=== PATIENT | male | born 1955 | race Caucasian/White ===

== ENCOUNTER 2024-07-01 17:32 | Inpatient (IN) | payer MEDICARE, OTHER, SELFPAY ==
[2024-07-01 16:05] VITALS: BMI 23.7
[2024-07-01 16:09] VITALS: BP 140/74
[2024-07-01 16:17] VITALS: BP 140/74
--- NOTE | 2024-07-01 16:25 | ED.CVA ---
History of Present Illness
General
Chief Complaint: CVA/TIA Symptoms
Source: patient, records and physician
Exam Limitations: none
Time Seen by Provider: 07/01/24 16:10
Onset of Stroke Symptoms
Onset of symptoms known: No
Time pt last seen normal is known: No
History of Present Illness
History of Present Illness:
69-year-old male currently lives at [facility]. Was sent for a MRI this morning. Patient thought it was a CAT scan. Apparently the CAT scan showed a new lacunar infarct. He was then sent to our ER for care. Only medical complaint is ongoing
dizziness that is vague in nature and has been going on for an unknown period of time. His covering physician could not determine exactly when his symptoms started. The MRI was ordered as an outpatient. He has an old right CVA with left-sided
weakness that is unchanged. He denies any other acute neurologic symptoms.
Past History
Past History
ED Past Medical History: CAD, CVA (03/2021 with left-sided residual weakness), HTN, Hypercholesterolemia, NIDDM, Psychiatric (Depression schizophrenia) and Other (Renal insufficiency)
ED Past Surgical History: Cardiac (CABG)
Social History
Tobacco: Smoker
Alcohol: None
Drug: None
Living: retirement
Review of Systems
Review of Systems
All Other Systems: Not applicable
Constitutional: Denies fever or chills
Respiratory: Reports no symptoms
Cardiac: Reports no symptoms
ABD/GI: Reports no symptoms
Phy Exam
Physical Exam
Physical Exam:
GENERAL: Alert and oriented in no apparent distress
EYE: Orbits normal.
NECK: Supple, no significant adenopathy.
ENT: Pharynx without erythema
CARDIAC: Regular rate and rhythm without any obvious murmurs.
LUNGS: Clear breath sounds,normal
ABDOMEN: Soft, without focal tenderness or distention
NEUROLOGICAL: Alert and oriented , mild left facial droop. Left arm drift. Can hold the left leg up against gravity
SKIN: Warm and dry, no rash or lesion, no discoloration, skin intact.
MUSCULOSKELETAL: No edema,no deformity.Good color. Slight contracture to the left arm
PSYCH: Normal and appropriate interaction.
Course
Orders/Labs/Results
Orders:
Orders
07/01/24 16:10
Electrocardiogram (*1) Stat
Reason for Study: Other
Other Reason for Exam: neuro symptoms
Cardiac Monitoring- Treatment ONCE
IV Insert/Care/Rem.- Treatment PRN
07/01/24 16:25
Basic Metabolic Panel Urgent
Complete Blood Count/With Diff Urgent
07/01/24 16:48
PTT Urgent
Prothrombin Time Urgent
07/01/24 17:09
Admit/Transfer Patient As Directed
Co-Sign Provider:
Level of Care: Inpatient admission
Assign to:: Telemetry
Physician / Group: clarence
Diagnosis: CVA
Reason for Telemetry: CVA/TIA
Date to Stop Telemetry: 07/04/24
Time to Stop Telemetry: 11:00
Reason for Hospitalization: cva/tia
Expected length of stay greater than two midnights?: Yes
ELOS- Estimated Length of Stay in days: 3
I certify the patient meets the requirements for IP care: Yes
PRN Pain Medication Management As Directed
May give lesser potent ordered pain med per pt: Yes
preference::
Protocol:: Medication orders for pain may be administered in a
manner that supports deferring to patient preference
when the pt is:
- Requesting an ordered lesser potent pain medication.
Least to most potent pain medications are defined
as: acetaminophen < NSAID < tramadol < opioids
(morphine, oxycodone, hydromorphone).
- Requesting a lesser dose of the same medication IF
ORDERED.
- Requesting a less intrusive route of administration
if both routes are prescribed by the provider (PO <
IV).
07/01/24 17:12
Code Status As Directed
Resuscitation Status: Full Code
07/01/24 17:25
VerifyNow Aspirin Stat
Pt on daily regimen OR been given initial dose of aspirin?: Yes
VerifyNow PRU Stat
Is the patient on antiplatelet medication, post 7 days?: Yes
07/01/24 18:18
Acetaminophen [Tylenol/Feverall] 650 mg RECTAL Q4HPRN PRN
Acetaminophen [Tylenol] 650 mg PO Q4HPRN PRN
Acetaminophen [Tylenol] 650 mg PO Q4HPRN PRN
Atorvastatin [Lipitor] 80 mg PO QPM
Dextrose 50%-Water [Dextrose 50% Syringe] 12.5 grams IV [id number] PRN
Glucagon [GlucaGen] 1 mg IM PRN PRN
07/01/24 18:18
Case Management Consult ONCE
Case Management Consult: Discharge Planning
Comment: stroke/tia
DIETARY CONSULT Routine
Reason for Consult: stroke/TIA
NEUROLOGY CONSULT Urgent
Consulting Provider: Jorge A Mahmood
Was physician already notified: Yes
Financial Sales Consultant Urgent
Activity As Directed
Activity Level: As Tolerated
Bedside Glucose Monitoring As Directed
Frequency: AC&HS
Additional Instructions:: Change to q6h if pt on TPN, tube feeding or not eating
NIH Stroke Scale As Directed
Directions: Per protocol
Comment: every shift and with any change in condition or mental status
Neurological Checks As Directed
Frequency: q4h
Additional Instructions:: q4h x 24h upon admission to the floor, then qshift & with any change in condition
and mental status
Orthostatic Vital Signs As Directed
Orthostatic VS Frequency: BID
Patient Education As Directed
Type: Stroke education packet
Comment: provide to patient and family
Pneumatic Compression Sleeves As Directed
Type: Thigh high
Vital Signs As Directed
Frequency: Per unit guidelines
Ot Eval And Treat Routine
Pt Eval And Treat Routine
Activity Level: As Tolerated
Speech Therapy Eval & Treat Routine
DX Deep Vein Thrombosis Video Routine
07/01/24 20:00
Benztropine [Cogentin] 0.5 mg PO BID
Haloperidol [Haldol] 6 mg PO BID
Metoprolol [Lopressor] 25 mg PO BID
Pantoprazole [Protonix] 40 mg PO BID
Sodium Chloride 2 gram PO BID
levetiracetam [Keppra] 750 mg PO BID
07/01/24 22:00
Magnesium Oxide 500 mg PO TID
Melatonin 6 mg PO HS
Mirtazapine [Remeron] 30 mg PO HS
Sennosides [Senokot] 8.6 mg PO HS
07/02/24 Breakfast
1600 calorie (13 carb) Diabetic
At Your Request: Full Participation
Basic Metabolic Panel IN AM
Cardiovascular Evaluation IN AM
Complete Blood Count/No Diff IN AM
Glycohemoglobin (HgbA1c) IN AM
07/02/24 07:30
Insulin Aspart Corrective Low [Novolog Flexpen-Low Resistance] See Protocol SC AC
07/02/24 08:00
Amlodipine [Norvasc] 5 mg PO DAILY
Aspirin Chewable [Low Strength Aspirin] 81 mg PO DAILY
Cholecalciferol (Vitamin D3) [VITAMIN D3 (cholecalciferol)] 25 mcg PO DAILY
Clopidogrel Bisulfate [Plavix] 75 mg PO DAILY
Cyanocobalamin [Vitamin B-12] 1,000 mcg PO DAILY
Docusate Sodium [Colace] 100 mg PO DAILY
FOLic ACID [Folvite] 1 mg PO DAILY
Ferrous Sulfate [Feosol] 325 mg PO DAILY
Loratadine [Claritin] 10 mg PO DAILY
citalopram 30 mg PO DAILY
fluticasone propionate 2 spray NASAL DAILY
07/03/24 06:00
Complete Blood Count/No Diff IN AM
07/04/24 06:00
Complete Blood Count/No Diff IN AM
07/04/24 11:00
DC Protocol for Telemetry ONCE
07/05/24 06:00
Complete Blood Count/No Diff IN AM
07/06/24 06:00
Complete Blood Count/No Diff IN AM
Abnormal Lab Results
07/01/24
16:25
RBC 3.74 L 10^6/uL
(4.70-6.10)
Hgb 10.3 L g/dL
(13.0-18.0)
Hct 30.2 L %
(39.0-52.0)
RDW 14.8 H %
(11.5-14.5)
Absolute Neuts (auto) 7.0 H 10^3/uL
(1.4-6.5)
Absolute Monos (auto) 0.7 H 10^3/uL
(0.1-0.6)
Neutrophils % 76.0 H %
(42.2-75.2)
Lymphocytes % 13.7 L %
(20.5-51.1)
Sodium 131 L mmol/L
(135-145)
Chloride 93 L mmol/L
(98-107)
Glucose 102 H mg/dl
(70-99)
07/01/24 16:25
07/01/24 16:25
Vital Signs
Initial and Last Documented VS:
Initial Vital Signs
BP
140/74
07/01/24 16:09
Last Documented Vital Signs
Temp Pulse Resp BP Pulse Ox
98.4 F 77 22 158/84 96
07/01/24 18:24 07/01/24 18:24 07/01/24 18:24 07/01/24 18:24 07/01/24 18:24
MDM/Problems Addressed
Differential Diagnosis Includes:
Patient with no acute neurologic findings. Old mild left hemiplegia from a right CVA. Nonetheless the report from the primary physician is as a new acute lacunar infarct. We are trying to alanis down this MRI report. I tried calling the
radiologist with no success.
*Critical Care Note
Total Time (30-74mins, 75-104mins- exclusive of procedures): Not Applicable
Data Reviewed
Review of Other/Old Records Reveals: Labs and Records
Update Note
Update Note:
MRI done as an outpatient shows a new lacunar infarct. Refer for admission and further care
ED Attending Note
-
Portions of this chart may have been created with voice recognition software.� Occasional wrong word or��sound alike� substitutions may have occurred due to the inherent limitations of voice recognition software.
Discharge Plan
Departure
Patient Disposition: Admit
Date of Disposition: 07/01/24
Time of Disposition: 16:46
Presentation/result/management discussed w/ accepting MD/DO: Hospitalist
Discharge Problem:
New lacunar cerebrovascular infarct
Interventions
Interventions:
*Risk Screen - Suicide Last Done: 07/01/24 16:22
*General Assessment Last Done: 07/01/24 16:23
*Neglect/Abuse Screening Last Done: 07/01/24 16:22
*ED COVID-19 Vaccine History Last Done: 07/01/24 16:22
*Nursing Disposition Last Done: 07/01/24 18:26
ED- Pulmonary Assessment Last Done: 07/01/24 16:22
ED- Neurological Assessment Last Done: 07/01/24 16:18
ED- Cardiac Assessment Last Done: 07/01/24 16:21
ED Swallowing Screen Last Done: 07/01/24 16:22
Discharge Date and Time
Discharge Date/Time: 07/01/24 18:26
[2024-07-01 16:33] LABS: % Basophils 0.5 % (0-2); % Eosinophils 2.5 % (0-6); % Immature Granulocytes 0.2 % (0-0.5); % Lymphocytes 13.7 % (20.5-51.1); % Monocytes 7.1 % (1.7-9.3); Absolute Basophils 0.1 10^3/uL (0-0.2); Absolute Eosinophils 0.2 10^3/uL (0-0.7); Absolute Lymphocytes 1.3 10^3/uL (1.2-3.4); Absolute Monocytes 0.7 10^3/uL (0.1-0.6); Hematocrit 30.2 % (39.0-52.0); Hemoglobin 10.3 g/dL (13.0-18.0); Mean Corp Hgb Conc. 34.1 g/dL (33.0-37.0); Mean Corpuscular Hgb 27.5 pg (27.0-31.0); Mean Corpuscular Volume 80.7 fL (80.0-94.0); Mean Platelet Volume 8.9 fL (7.4-10.4); Nucleated Red Blood Cells % 0 % (-); Platelet Count 287 10^3/uL (130-400); Red Blood Cell Count 3.74 10^6/uL (4.70-6.10); Red Cell Dist. Width 14.8 % (11.5-14.5); White Blood Cell Count 9.2 10^3/uL (4.8-10.8)
--- NOTE | 2024-07-01 16:47 | HPS.HSE ---
Family Physician
-
Family Physician:
Chief Complaint
-
Lightheadedness
Blurry vision
History of Present Illness
69-year-old male with past medical history for hypertension, type 2 diabetes, hyperlipidemia, coronary artery disease, seizure, CVA with left-sided weakness currently lives at [facility] presented to us with lightheadedness, fogginess, intermittent
blurry vision for more than 2 weeks. Patient had an MRI done today which showed new lacunar infract. Patient denied any headache. Denied any falls. Patient denied any fever, chills, chest pain, short of breath. Patient denied any abdominal
pain, nausea, vomiting, diarrhea. Patient denied dysuria hematuria.
Admitting for further management
Medical History
Past Medical History
Past Medical History: Reports Other
Additional Past Medical History:
barrets esophagus
left hemiparesis with CVA
Coronary artery disease
Essential hypertension
Carotid artery disease
Type 2 diabetes
CVA
Schizophrenia
CKD
Bipolar
Seizure
Past Surgical History: Reports Other
Additional Past Surgical History:
Coronary artery bypass graft
Left hip surgery
Social History
Tobacco: Smoker (3 cigarettes daily )
Alcohol: None
Drug: None
Personal: Single
Living: Care Home
Family History
Family History: Not pertinent
Allergies / Home Medications
Allergies reflects when Allergies were last updated in [employer].
Home Medications with original date entered in [employer]
Allergy/Medication List:
Allergies
Allergy/AdvReac Type Severity Reaction Status Date / Time
Penicillins Allergy per Verified 07/01/24 16:18
cardiac H&P
Home Medications
amlodipine 5 mg tablet 5 mg PO DAILY Blood pressure 04/18/21
benztropine 0.5 mg tablet 0.5 mg PO BID Drug induced dyskinesia 04/18/21
bisacodyl 10 mg rectal suppository (OneLAX Bisacodyl) 10 mg AR DAILYPRN PRN If MOM ineffective 04/18/21
levetiracetam 750 mg tablet (Keppra) 750 mg PO BID Seizures 04/18/21
loratadine 10 mg tablet 10 mg PO DAILY Allergies 04/18/21
metformin 500 mg tablet 500 mg PO BID@0800,1700 Diabetes 04/18/21
metoprolol tartrate 25 mg tablet 25 mg PO BID Blood pressure 04/18/21
mirtazapine 15 mg tablet 30 mg PO HS Sleep 04/18/21
atorvastatin 80 mg tablet 80 mg PO QPM High cholesterol 11/07/21
clopidogrel 75 mg tablet 75 mg PO DAILY Blood clot prevention/tx 11/07/21
fluticasone propionate 50 mcg/actuation nasal spray,suspension 2 spray intranasal DAILY Allergies 11/07/21
magnesium hydroxide 400 mg/5 mL oral suspension 30 ml PO HSPRN PRN constipation, no BM in 3 days 11/07/21
sennosides 8.6 mg tablet (senna) 8.6 mg PO HS Constipation 11/07/21
acetaminophen 325 mg tablet 650 mg PO Q4HPRN PRN mild pain/AGUILAR/temp> 101F, mild pain 11/13/21
cyanocobalamin (vitamin B-12) 1,000 mcg tablet 1,000 mcg PO DAILY Supplement 11/13/21
folic acid 1 mg tablet 1 mg PO DAILY Supplement 11/13/21
magnesium oxide 500 mg PO TID Supplement 11/13/21
pantoprazole 40 mg tablet,delayed release 40 mg PO BID Gastrointestinal issue 11/13/21
aspirin 81 mg chewable tablet 81 mg PO DAILY 11/14/21
cholecalciferol (vitamin D3) 25 mcg (1,000 unit) tablet 25 mcg PO DAILY 07/01/24
citalopram 30 mg capsule 30 mg PO DAILY 07/01/24
dextromethorphan HBr 10 ml PO Q6HPRN PRN cough 07/01/24
docusate sodium 100 mg tablet 100 mg PO DAILY 07/01/24
ferrous sulfate 325 mg (65 mg iron) tablet 325 mg PO DAILY 07/01/24
haloperidol 1 mg tablet 6 mg PO BID 07/01/24
lorazepam 0.5 mg topical Q6HPRN PRN agitation 07/01/24
melatonin 3 mg tablet 6 mg PO HS 07/01/24
sodium chloride 1,000 mg soluble tablet 2,000 mg PO BID 07/01/24
sodium phosphates 19 gram-7 gram/118 mL enema (Fleet Enema) 118 ml AR DAILYPRN PRN if suppository is ineffective 07/01/24
Review of Systems
-
Constitutional: Reports No Symptoms
EENT: Reports No Symptoms
Respiratory: Reports No Symptoms
Cardiac: Reports No Symptoms
Abdomen/GI: Reports No Symptoms
: Reports No Symptoms
Musculoskeletal: Reports No Symptoms
Skin: Reports No Symptoms
Neurological: Reports Other (Dizziness, fogginess, blurry vision)
Endocrine: Reports No Symptoms
Hematologic/Lymphatic: Reports No Symptoms
Psych: Reports No Symptoms
Physical Exam
Vital Signs
Vital Signs
Temp Pulse Resp BP Pulse Ox
98.5 F 72 18 140/74 96
07/01/24 16:17 07/01/24 16:17 07/01/24 16:17 07/01/24 16:17 07/01/24 16:22
Physical Exam
General: Well Developed, Well Nourished and No Apparent Distress
HEENT: NormoCephalic, Moist mucous membranes and Atraumatic
Respiratory: Clear
Cardiac: S1/S2 and Regular Rhythm; No Murmur or Rub
GI: Soft, Non Tender, Non Distended and Normal Bowel Sounds; No Organomegaly
Rectal: Deferred by Provider
Musculoskeletal: No Clubbing, No Cyanosis and No Edema
Skin: No Rash
Neuro: Nonfocal/grossly intact and Other (Left-sided weakness)
Laboratory Results
-
07/01/24 16:25
Laboratory Results
PT Cancelled 07/01/24 16:25
INR Cancelled 07/01/24 16:25
APTT Cancelled 07/01/24 16:25
Data Reviewed
-
MRI: Report Reviewed by me
Impression/Plan
-
#new acute lacunar infract
# History of CVA with the right hemispheric infarct left upper extremities weakness
-outpatient MRI with acute nonhemorrhagic lacunar infract. nonspecific punctate foci of chronic microhemorrhage in the left parietal love and left cerebellum. nonspecific 13mm enhancing lesion in the right frontal calvarium
-On aspirin Plavix continued
-PT OT
-Obtain A1c and lipid profile
-obtain orthostatic
-Neurology consult
#anemia of chronic disease
-hgb stable at 10.3
-no active bleeding
-ctm
-Ferrous sulfate continued
#Hypertension
-bp stable
-Norvasc,metoprolol continued with hold parameters
#Diabetes mellitus type 2
-hold metformin
-sliding scale
-CHO diet
#nicotine use
-smoke 3 cigarettes daily
-denied nicotine patch
#HLD
cont Zocor
#CAD/CS
s/p carotid endarterectomy
Status post CABG x2
Continue aspirin, Zocor
#Seizure disorder
Continue Keppra
#Schizophrenia history
Continue Haldol, Cogentin, Remeron
-Lorazepam as needed for agitation
# Depression
-Citalopram continued
#GERD
-PPI continued
#chronic hyponatremia
-sodium tabs continued
DVT prophylaxis
scd
Full code
[2024-07-01 16:48] LABS: Blood Urea Nitrogen 16 mg/dl (9-20); Calcium 9.5 mg/dl (8.4-10.2); Carbon Dioxide 27 mmol/L (22-30); Chloride 93 mmol/L (98-107); Estimated Creatinine Clearance 73 ml/min; Glucose 102 mg/dl (70-99); Sodium 131 mmol/L (135-145); eGFR > 60.00
[2024-07-01 17:20] LABS: INR 1.08
[2024-07-01 17:21] LABS: APTT 28.3 Sec (23.4-35.0)
--- NOTE | 2024-07-01 18:10 | W.PN.UPDATE ---
Update Note
Progress Note Update
This is an addendum to the H&P written by Christina Hinton on 07/01/2024. Patient seen and examined dependently with DOCK BOSS. 69-year-old male with past medical history of prior CVA with left-sided weakness on aspirin/Plavix, high-grade left carotid stenosis
status post carotid endarterectomy, hypertension, type 2 diabetes, hyperlipidemia, CAD status post CABG, seizure history, hyponatremia, anxiety/depression, presenting with 2 weeks of lightheadedness with standing, blurry vision notably in the left
eye and left lower quadrant of the visual field and disequilibrium. He has chronic left upper and lower extremity weakness. Denies any headache or difficulty speaking.
He had outpatient MRI which showed acute nonhemorrhagic lacunar infarct in the left frontal coles radiata, right quadrigeminal plate cistern lipoma exerting mild localized mass effect upon the right dorsal midbrain midline shift, herniation or
hydrocephalus. There is advanced chronic microangiopathic ischemic changes. Chronic lacunar infarcts of bilateral cerebral white matter thalami and marga. Nonspecific punctate foci of chronic microhemorrhage in the left parietal and left
cerebellum. Nonspecific 30 mg had seen lesion the right frontal calvarium.
On examination there is left upper and lower extremity weakness appears chronic. There is subtle left eyelid droop.
Presentation concerning for recurrent strokes although not clearly correlating with MRI findings. Continue aspirin and Plavix. Telemetry monitoring. Check aspirin and Plavix verify now assay. Neurology consulted. Check orthostatic vital signs.
Check carotid artery ultrasound.
[2024-07-01 18:24] VITALS: BP 158/84
[2024-07-01 18:26] VITALS: BMI 20.3
[2024-07-01 19:50] VITALS: BP 175/91
--- NOTE | 2024-07-01 19:52 | VATNOTE ---
pt refused to have pre-hospital IV restarted when protocol explained; pt began yelling at this VAT RN.
[2024-07-01 19:55] LABS: VerifyNow Aspirin 543 ARU; VerifyNow PRU 82 PRU (180-376)
[2024-07-01] MEDS: LIPITOR 80 MG PO (20:58)
[2024-07-01] MEDS: KEPPRA 250 MG PO (20:58)
[2024-07-01] MEDS: COGENTIN 0.5 MG PO (20:58)
[2024-07-01] MEDS: SODIUM CHLORIDE 2 GRAM PO (20:58)
[2024-07-01] MEDS: LOPRESSOR 25 MG PO (20:58)
[2024-07-01] MEDS: PROTONIX 40 MG PO (20:58)
[2024-07-01] MEDS: KEPPRA 500 MG PO (20:59)
[2024-07-01] MEDS: MAGNESIUM OXIDE 500 MG PO (21:02)
[2024-07-01] MEDS: MELATONIN 6 MG PO (21:03)
[2024-07-01] MEDS: SENOKOT 8.6 MG PO (21:03)
[2024-07-01] MEDS: REMERON 30 MG PO (21:03)
[2024-07-01 21:10] LABS: Glucose - Point of Care 161 mg/dl (70-99)
[2024-07-01] MEDS: HALDOL 6 MG PO (22:33)
[2024-07-01 23:17] VITALS: BP 141/75
[2024-07-02] VITALS (7 sets, daily range): BP systolic 116–181; BP diastolic 66–93; PULSE 62–69
[2024-07-02 07:10] LABS: Glucose - Point of Care 115 mg/dl (70-99)
[2024-07-02 07:42] LABS: Hematocrit 30.6 % (39.0-52.0); Hemoglobin 10.2 g/dL (13.0-18.0); Mean Corp Hgb Conc. 33.3 g/dL (33.0-37.0); Mean Corpuscular Hgb 27.4 pg (27.0-31.0); Mean Corpuscular Volume 82.3 fL (80.0-94.0); Platelet Count 284 10^3/uL (130-400); Red Blood Cell Count 3.72 10^6/uL (4.70-6.10); White Blood Cell Count 5.8 10^3/uL (4.8-10.8)
[2024-07-02 08:15] LABS: Blood Urea Nitrogen 14 mg/dl (9-20); Calcium 9.3 mg/dl (8.4-10.2); Carbon Dioxide 30 mmol/L (22-30); Chloride 95 mmol/L (98-107); Estimated Creatinine Clearance 84 ml/min; Glucose 108 mg/dl (70-99); HDL Cholesterol 37 mg/dl; LDL Cholesterol, Calculated 39 mg/dl; Potassium 4.6 mmol/L (3.5-5.1); Sodium 134 mmol/L (135-145); Total Cholesterol 83 mg/dl (50-199); Triglyceride 36 mg/dl (10-149); Very Low Density Lipoprotein 7 mg/dl (0-30); eGFR > 60.00
[2024-07-02] MEDS: SODIUM CHLORIDE 2 GRAM PO (08:26)
[2024-07-02] MEDS: FOLVITE 1 MG PO (08:27)
[2024-07-02] MEDS: LOPRESSOR 25 MG PO (08:27)
[2024-07-02] MEDS: PROTONIX 40 MG PO (08:27)
[2024-07-02] MEDS: CELEXA 20 MG PO (08:27)
[2024-07-02] MEDS: HALDOL 6 MG PO (08:28)
[2024-07-02] MEDS: VITAMIN D3 (cholecalciferol) 25 MCG PO (08:28)
[2024-07-02] MEDS: KEPPRA 250 MG PO (08:28)
[2024-07-02] MEDS: PLAVIX 75 MG PO (08:28)
[2024-07-02] MEDS: LOW STRENGTH ASPIRIN 81 MG PO (08:28)
[2024-07-02] MEDS: NORVASC 5 MG PO ×2 (08:28→16:24)
[2024-07-02] MEDS: COGENTIN 0.5 MG PO (08:28)
[2024-07-02] MEDS: CELEXA 10 MG PO (08:28)
[2024-07-02] MEDS: VITAMIN B-12 1000 MCG PO (08:29)
[2024-07-02] MEDS: COLACE 100 MG PO (08:29)
[2024-07-02] MEDS: MAGNESIUM OXIDE 500 MG PO ×2 (08:29→16:24)
[2024-07-02] MEDS: KEPPRA 500 MG PO (08:29)
[2024-07-02] MEDS: FEOSOL 325 MG PO (08:30)
[2024-07-02] MEDS: CLARITIN 10 MG PO (08:31)
[2024-07-02 10:54] LABS: Glycohemoglobin (HgbA1c) 6.4 % (4.0-5.6)
--- NOTE | 2024-07-02 11:21 | W.PN.HOSP.TC ---
Today's Communication/Plan
-
dispo planning - awaiting PT/OT Evals
Assessment / Plan
Assessment / Plan
69-year-old male with past medical history for hypertension, type 2 diabetes, hyperlipidemia, coronary artery disease, seizure, CVA with left-sided weakness currently lives at [facility] presented to us with lightheadedness, fogginess, intermittent
blurry vision for more than 2 weeks. Patient had an MRI as outpatient which showed new lacunar infract.
#new acute lacunar infract
#History of CVA with the right hemispheric infarct left upper extremities weakness
-outpatient MRI with acute nonhemorrhagic lacunar infarct. nonspecific punctate foci of chronic microhemorrhage in the left parietal love and left cerebellum. nonspecific 13mm enhancing lesion in the right frontal calvarium
-continue REAL ESTATE OPERATIONS MANAGER aspirin and plavix
-REAL ESTATE OPERATIONS MANAGER statin
-PT/OT
-Obtain A1c - 6.4% and lipid profile - total cholesterol 83, LDL 39
-Neurology consult appreciated
#anemia of chronic disease
-hgb stable at 10.3
-no active bleeding
-ctm
-Ferrous sulfate continued
#Hypertension
-Norvasc, Metoprolol continued with hold parameters
#Diabetes mellitus type 2
-hold metformin
-sliding scale
-CHO diet
#nicotine use
-smoke 3 cigarettes daily
-denied nicotine patch
#HLD
cont Zocor
#CAD/CS
s/p carotid endarterectomy
Status post CABG x2
Continue aspirin, Zocor
#Seizure disorder
Continue Keppra
#Schizophrenia history
Continue Haldol, Cogentin, Remeron
-Lorazepam as needed for agitation
# Depression
-Citalopram continued
#GERD
-PPI continued
#chronic hyponatremia
-sodium tabs continued
DVT prophylaxis
scd
Full code
Anticipated Discharge: Within 24 hours
Subjective/Interval History
-
Date of Service: July 02, 2024
feeling ok
feels weak
needs to get up with PT
Objective Data
-
Labs:
Laboratory Results
07/02/24 07/02/24
06:45 06:46
WBC 5.8
Hgb 10.2 L
Hct 30.6 L
Plt Count 284
Sodium 134 L
Potassium 4.6
Chloride 95 L
Carbon Dioxide 30
BUN 14
Creatinine 0.7
Glucose 108 H
Calcium 9.3
Vital Signs:
Vital Signs
Temp Pulse Resp BP Pulse Ox
97.8 F 62 18 144/78 97
07/02/24 07:05 07/02/24 07:05 07/02/24 07:05 07/02/24 07:05 07/02/24 07:05
I&O
07/01/24 07/02/24 07/03/24
06:59 06:59 06:59
Intake Total 480 / 480
Balance 480 / 480
Review of Systems
-
History Source: Patient
All other systems: Reviewed and negative
Physical Exam
-
General: No Apparent Distress
HEENT: PERRLA
Respiratory: Clear to Auscultation; Negative Wheezes
Cardiac: Regular Rhythm and S1/S2
GI: Nontender
Musculoskeletal: No Edema
Skin: Warm and Dry; Negative Rash
Neuro: Other (left-sided weakness )
Psych: Calm
Data Reviewed
-
Diagnostic Radiology: Report Reviewed by me
Labs: Labs Reviewed by me
[2024-07-02 11:42] LABS: Glucose - Point of Care 133 mg/dl (70-99)
--- NOTE | 2024-07-02 14:14 | W.DS.TRANS ---
DC Summary - Chief Clinical Officer
-
Discharge Instructions:
Discharge Diagnosis/Procedures lacunar infarct
Diet Low Cholesterol
Activity As tolerated
Driving Restrictions No driving
Bathing Restrictions None
Other Services PT,OT
Instructions:
Stand-Alone Forms:
Changes to Home Medications: No
Discharge Medications:
DC Medications w/original date entered in [employer]
amlodipine 5 mg tablet 5 mg PO DAILY Blood pressure 04/18/21
benztropine 0.5 mg tablet 0.5 mg PO BID Drug induced dyskinesia 04/18/21
bisacodyl 10 mg rectal suppository (OneLAX Bisacodyl) 10 mg OH DAILYPRN PRN If MOM ineffective 04/18/21
levetiracetam 750 mg tablet (Keppra) 750 mg PO BID Seizures 04/18/21
loratadine 10 mg tablet 10 mg PO DAILY Allergies 04/18/21
metformin 500 mg tablet 500 mg PO BID@0800,1700 Diabetes 04/18/21
metoprolol tartrate 25 mg tablet 25 mg PO BID Blood pressure 04/18/21
mirtazapine 15 mg tablet 30 mg PO HS Sleep 04/18/21
atorvastatin 80 mg tablet 80 mg PO QPM High cholesterol 11/07/21
clopidogrel 75 mg tablet 75 mg PO DAILY Blood clot prevention/tx 11/07/21
fluticasone propionate 50 mcg/actuation nasal spray,suspension 2 spray intranasal DAILY Allergies 11/07/21
magnesium hydroxide 400 mg/5 mL oral suspension 30 ml PO HSPRN PRN constipation, no BM in 3 days 11/07/21
sennosides 8.6 mg tablet (senna) 8.6 mg PO HS Constipation 11/07/21
acetaminophen 325 mg tablet 650 mg PO Q4HPRN PRN mild pain/AGUILAR/temp> 101F, mild pain 11/13/21
cyanocobalamin (vitamin B-12) 1,000 mcg tablet 1,000 mcg PO DAILY Supplement 11/13/21
folic acid 1 mg tablet 1 mg PO DAILY Supplement 11/13/21
magnesium oxide 500 mg PO TID Supplement 11/13/21
pantoprazole 40 mg tablet,delayed release 40 mg PO BID Gastrointestinal issue 11/13/21
aspirin 81 mg chewable tablet 81 mg PO DAILY 11/14/21
cholecalciferol (vitamin D3) 25 mcg (1,000 unit) tablet 25 mcg PO DAILY Supplement 07/01/24
citalopram 30 mg capsule 30 mg PO DAILY Mental Health/Anxiety 07/01/24
dextromethorphan HBr 10 ml PO Q6HPRN PRN cough 07/01/24
docusate sodium 100 mg tablet 100 mg PO DAILY Constipation 07/01/24
ferrous sulfate 325 mg (65 mg iron) tablet 325 mg PO DAILY Supplement 07/01/24
haloperidol 1 mg tablet 6 mg PO BID Mental Health/Anxiety 07/01/24
lorazepam 0.5 mg topical Q6HPRN PRN agitation 07/01/24
melatonin 3 mg tablet 6 mg PO HS Sleep 07/01/24
sodium chloride 1,000 mg soluble tablet 2,000 mg PO BID Supplement 07/01/24
sodium phosphates 19 gram-7 gram/118 mL enema (Fleet Enema) 118 ml OH DAILYPRN PRN if suppository is ineffective 07/01/24
Home Medication Changes
Pending Results: No
--- NOTE | 2024-07-02 14:15 | W.DCSUMMARY ---
Addendum entered and electronically signed by Cee Tony MD 07/02/24 15:35:
patient hypertensive, I will increase DIGITAL ART DIRECTOR amlodipine from 5mg to 10mg daily.
Original Note:
Discharge Summary
Discharge Data
Date of Admission: 07/01/24
Date of Discharge: 07/02/24
-
Pending Results: No
Hospital Course
Discharging Physician : Dr. Cee Tony
Disposition : NH
Primary care physician : Dr. Rodney Swanson
Principal Discharge diagnosis : Acute lacunar ischemic infarct
Hospital Course :
69-year-old male with past medical history for hypertension, type 2 diabetes, hyperlipidemia, coronary artery disease, seizure, CVA with left-sided weakness currently lives at [facility] presented to us with lightheadedness, fogginess, intermittent
blurry vision for more than 2 weeks. Patient had an MRI as outpatient which showed new lacunar infract. He was admitted to medicine with neurology consulting, Carotid US without severe stenosis. Per neurology, he will stay on his DIGITAL ART DIRECTOR regimen:
asa, plavix and atorvastatin. He worked with PT and discharged back to SNF.
Time spent on discharge was 35 minutes.
Important imaging findings :
Carotid US
RIGHT: Calcified plaque in the carotid bulb and proximal internal carotid artery. Carotid velocity profile is consistent with less than 50% internal carotid artery stenosis. Vertebral artery flow is antegrade.
LEFT: No significant plaque is identified. Carotid endarterectomy is patent. Carotid velocity profiles consistent with less than 50% internal carotid artery stenosis. Vertebral artery flow is antegrade.
Procedure findings :
Discharge Plan
-
Patient Disposition: Senior Care/SNF
Discharge Diagnosis/Procedures: lacunar infarct
Diet: Low Cholesterol and Other diet
Additional Diets: IDSS1 level 6 soft and bite size, thin liquids
Activity: As tolerated
Driving Restrictions: No driving
Bathing Restrictions: None
Other Services: PT and OT
Referrals:
Rodney Swanson, DO [Family Provider] - in less than 1 week
Prescriptions:
Continued
metformin 500 MG tablet
500 mg PO BID@0800,1700
benztropine 0.5 MG tablet
0.5 mg PO BID
amlodipine 5 MG tablet
5 mg PO DAILY
bisacodyl [OneLAX Bisacodyl] 10 MG suppository
10 mg AR DAILYPRN PRN (Reason: If MOM ineffective)
levetiracetam [Keppra] 750 MG tablet
750 mg PO BID
mirtazapine 15 MG tablet
30 mg PO HS
loratadine 10 MG tablet
10 mg PO DAILY
metoprolol tartrate 25 MG tablet
25 mg PO BID
atorvastatin 80 MG tablet
80 mg PO QPM
clopidogrel 75 MG tablet
75 mg PO DAILY
magnesium hydroxide 30 ML suspension
30 ml PO HSPRN PRN (Reason: constipation, no BM in 3 days )
sennosides [senna] 1 TABLET tablet
8.6 mg PO HS
fluticasone propionate 1 SPRAY spray,suspension
2 spray intranasal DAILY
acetaminophen 325 MG tablet
650 mg PO Q4HPRN PRN (Reason: mild pain/AGUILAR/temp> 101F, mild pain)
cyanocobalamin (vitamin B-12) 1,000 MCG tablet
1,000 mcg PO DAILY
pantoprazole 40 MG tablet,delayed release (DR/EC)
40 mg PO BID
magnesium oxide 500 MG tablet
500 mg PO TID
folic acid 1 MG tablet
1 mg PO DAILY
aspirin 81 MG tablet,chewable
81 mg PO DAILY 0RF
haloperidol 1 mg tablet
6 mg PO BID
melatonin 3 mg Tablet
6 mg PO HS
ferrous sulfate 325 mg (65 mg iron) Tablet
325 mg PO DAILY
Fleet Enema 19-7 gram/118 mL Enema
118 ml AR DAILYPRN PRN (Reason: if suppository is ineffective)
docusate sodium 100 mg Tablet
100 mg PO DAILY
sodium chloride 1,000 mg Tablet,Soluble
2,000 mg PO BID
cholecalciferol (vitamin D3) 25 mcg (1,000 unit) Tablet
25 mcg PO DAILY
citalopram 30 mg Capsule
30 mg PO DAILY
dextromethorphan HBr solution
10 ml PO Q6HPRN PRN (Reason: cough)
lorazepam 1 mg/ml gel
0.5 mg topical Q6HPRN PRN (Reason: agitation)
Rx Instructions:
apply to hairless part of body
Discharge Orders:
Discharge Patient (As Directed); Ordered 07/02/24
Ordered By: Cee Tony
Discharge Date and Time
Print Language: NEPALI
--- NOTE | 2024-07-02 14:18 | PTOTSP ---
SPEECH THERAPY SWALLOW, SPEECH, LANGUAGE, COGNITIVE COMMUNICATION EVALUATION:
Patient exhibits clinical signs of oropharyngeal dysphagia, likely chronic related to history of CVA with residual left sided weakness and acutely exacerbated by new acute lacunar infarct. Patient currently demonstrating no signs or symptoms of
aspiration at this time; However, remains at risk for aspiration and related complications given cognitive deficits/confusion and acute CVA. Recommend IDDSI Level 6 Soft and Bite Size diet, thin liquids. Medications whole in puree (pt reported this
is his baseline). Aspiration precautions including: Upright postioning; Small single sips/bites; Slow rate of intake; Partial assistance/supervision with meals; Ensure oral cavity clear prior to taking next bite; Dentures in place for mastication;
Alternate textures/intersperse liquids. Oral care 3x/day to reduce risk for nosocomial infection. ST to follow, assess diet tolerance and modify as appropriate, provide continued education regarding aspiration risks/precautions, and provide
continued diagnostic swallow therapy as appropriate.
Patient exhibits mild speech, mild expressive language, moderate receptive language and moderate cognitive communication impairments, likely chronic related to history of CVA and acutely exacerbated by new lacunar infarct. Impairments include
deficits in the areas of word finding, auditory comprehension, orientation, problem solving, STM, safety awareness, and insight. Unclear patient's baseline level of functioning as pt reported he is currently at baseline though appeared to be a poor
historian. Recommend ST services at the acute care level at this time.
RECOMMEND:
1) IDDSI Level 6 Soft and Bite Size diet, thin liquids
2) Medications whole in puree
3) Aspiration precautions including: Upright postioning; Small single sips/bites; Slow rate of intake; Partial assistance/supervision with meals; Ensure oral cavity clear prior to taking next bite; Dentures in place for mastication; Alternate
textures/intersperse liquids
4) ST to follow at the acute care level for swallow and speech therapy
--- NOTE | 2024-07-02 15:31 | W.DS.TRANS ---
DC Summary - Cutter Operator Tile
-
Discharge Instructions:
Discharge Diagnosis/Procedures lacunar infarct
Diet Low Cholesterol,Other diet
Additional Diets IDSS1 level 6 soft and bite size, thin liquids
Activity As tolerated
Driving Restrictions No driving
Bathing Restrictions None
Other Services PT,OT
Instructions:
Stand-Alone Forms:
Changes to Home Medications: No
Discharge Medications:
DC Medications w/original date entered in [employer]
benztropine 0.5 mg tablet 0.5 mg PO BID Drug induced dyskinesia 04/18/21
bisacodyl 10 mg rectal suppository (OneLAX Bisacodyl) 10 mg NE DAILYPRN PRN If MOM ineffective 04/18/21
levetiracetam 750 mg tablet (Keppra) 750 mg PO BID Seizures 04/18/21
loratadine 10 mg tablet 10 mg PO DAILY Allergies 04/18/21
metformin 500 mg tablet 500 mg PO BID@0800,1700 Diabetes 04/18/21
metoprolol tartrate 25 mg tablet 25 mg PO BID Blood pressure 04/18/21
mirtazapine 15 mg tablet 30 mg PO HS Sleep 04/18/21
atorvastatin 80 mg tablet 80 mg PO QPM High cholesterol 11/07/21
clopidogrel 75 mg tablet 75 mg PO DAILY Blood clot prevention/tx 11/07/21
fluticasone propionate 50 mcg/actuation nasal spray,suspension 2 spray intranasal DAILY Allergies 11/07/21
magnesium hydroxide 400 mg/5 mL oral suspension 30 ml PO HSPRN PRN constipation, no BM in 3 days 11/07/21
sennosides 8.6 mg tablet (senna) 8.6 mg PO HS Constipation 11/07/21
acetaminophen 325 mg tablet 650 mg PO Q4HPRN PRN mild pain/AGUILAR/temp> 101F, mild pain 11/13/21
cyanocobalamin (vitamin B-12) 1,000 mcg tablet 1,000 mcg PO DAILY Supplement 11/13/21
folic acid 1 mg tablet 1 mg PO DAILY Supplement 11/13/21
magnesium oxide 500 mg PO TID Supplement 11/13/21
pantoprazole 40 mg tablet,delayed release 40 mg PO BID Gastrointestinal issue 11/13/21
aspirin 81 mg chewable tablet 81 mg PO DAILY 11/14/21
cholecalciferol (vitamin D3) 25 mcg (1,000 unit) tablet 25 mcg PO DAILY Supplement 07/01/24
citalopram 30 mg capsule 30 mg PO DAILY Mental Health/Anxiety 07/01/24
dextromethorphan HBr 10 ml PO Q6HPRN PRN cough 07/01/24
docusate sodium 100 mg tablet 100 mg PO DAILY Constipation 07/01/24
ferrous sulfate 325 mg (65 mg iron) tablet 325 mg PO DAILY Supplement 07/01/24
haloperidol 1 mg tablet 6 mg PO BID Mental Health/Anxiety 07/01/24
lorazepam 0.5 mg topical Q6HPRN PRN agitation 07/01/24
melatonin 3 mg tablet 6 mg PO HS Sleep 07/01/24
sodium chloride 1,000 mg soluble tablet 2,000 mg PO BID Supplement 07/01/24
sodium phosphates 19 gram-7 gram/118 mL enema (Fleet Enema) 118 ml NE DAILYPRN PRN if suppository is ineffective 07/01/24
amlodipine 5 mg tablet 10 mg (2 x 5 mg) PO DAILY #60 tabs 07/02/24
Home Medication Changes
amlodipine increased from 5 to 10mg daily
Pending Results: No
--- NOTE | 2024-07-02 15:47 | CON.NEURO4 ---
Consultation - Neurology 4
-
CONSULTING PHYSICIAN: Jorge A Mahmood MD neurology
REFERRING PHYSICIAN: Hospitalist
DICTATED BY: Jorge A Mahmood MD
DATE/TIME OF REQUEST: July 02, 2024
DATE/TIME OF CONSULTATION: July 02, 2024
Reason for Consultation: Lightheadedness with blurred vision
History of Present Illness:
This is a 69year old right) handed (male who has presented to the hospital with (chief complaint) of weakness. . He gives a history of Right CVA with left-sided weakness, high-grade left carotid stenosis status post carotid endarterectomy,
hypertension, type 2 diabetes, hyperlipidemia, CAD status post CABG, seizure history, hyponatremia, anxiety/depression, Mora's esophagus schizophrenia bipolar disorder who had been experiencing intermittent episodes of lightheadedness with
standing, blurry vision notably in the left eye and left lower quadrant of the visual field and disequilibrium. He has chronic left upper and lower extremity weakness.
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
or hydrocephalus. There is chronic microangiopathic ischemic changes. Chronic lacunar infarcts of bilateral cerebral white matter thalami and marga. Nonspecific punctate foci of chronic microhemorrhage in the left parietal and left cerebellum.
Nonspecific lesion the right frontal calvarium.
On examination there is left upper and lower extremity weakness appears chronic. .
At the time of my examination patient has no new deficits other than chronic left-sided weakness mostly of the left upper extremity. Carotid ultrasound shows no significant carotid disease healed left carotid surgical scar
Past Medical History: As above left carotid endarterectomy
Surgical History:
Family History: Noncontributory
Social History: Lives in a retirement facility. Continues to smoke. 5 cigarettes. no alcohol
Allergies: Penicillin
Home Medications: See addendum
Review of Symptoms:
Patient denies any fever, headache, chest pain, shortness of breath, GI or symptoms.
�Per the HPI.�All systems are reviewed negative except above.
�- Remove any of these problems that patient may have complained about in the HPI.
�- If patient is unresponsive, intubated or demented, say 'Per the HPI. I am unable to obtain a complete review of systems�because of patient's inability to provide history.'
Vital Signs:
The patient has a Temp 97.8 F Pulse62 Resp 18 BP 144/78 Pulse Ox 97
Physical Exam:
The patient is afebrile, heart sounds S1 and S2 are (regular / irregular), and chest is clear to auscultation bilaterally.
- If not clear, describe.:
Neurologic Examination:
The patient is awake, alert and oriented x 3. (He is able to follow commands and answer questions appropriately. There is no aphasia or dysarthria.
On cranial nerve assessment, pupils are 3 mm bilateral, round and reactive to light and accommodation. Visual muñiz are full. Extraocular movements are intact. Facial sensations are intact and bilaterally symmetrical,
there is LEFT facial asymmetry. Hearing is intact bilaterally to normal conversation volume. Tongue palate and uvula are midline. Sternocleidomastoid strengths are full bilaterally.
Motor strengths are 3/5 left upper extremity 4/5 left lower extremity. Strength in the right right upper and lower extremities is 5/5. There is LEFT drift or involuntary movement noted.
Deep tendon reflexes are 2+ bilateral upper and lower extremities and Babinski is absent bilaterally. Sensations of pain, touch, temperature and vibration are intact and bilaterally symmetrical. There was no extinction noted on double simultaneous
stimulation. Coordination is intact by finger to nose bilaterally.
Lab Results: See addendum
Neuro Imaging: CT/MRI head shows extensive white matter disease. New lacunar disease of unknown significance
Impression:
(Mr. BOO VALDES is a 69 year old M who has presented to the hospital with (symptoms/chief complaint). Lightheadedness and blurred vision that is resolved with MRI findings of new lacunar disease of no clinical significance
Differentials for the patient's presentation include:
1. TIA
2. Vertigo
3. Breakthrough seizure
Recommendations:
1. Continue aspirin
2. Continue Plavix
3. Continue Keppra 750 twice
Discussed patient care with: Hospitalist and patient
Patient to be discharged after physical therapy
Allergies
-
Allergies
Allergy/AdvReac Type Severity Reaction Status Date / Time
Penicillins Allergy per Verified 07/01/24 16:18
cardiac H&P
Vital Signs and Labs
-
Vital Signs and Labs:
Vital Signs
Temp Pulse Resp BP Pulse Ox
36.4 C 61 18 116/66 98
07/02/24 15:53 07/02/24 15:53 07/02/24 15:53 07/02/24 15:53 07/02/24 15:53
Lab Results
07/02/24 06:46
07/02/24 06:45
PT 14.0 Sec (11.4-14.6) 07/01/24 16:48
INR 1.08 07/01/24 16:48
APTT 28.3 Sec (23.4-35.0) 07/01/24 16:48
Sodium 134 mmol/L (135-145) L 07/02/24 06:45
Potassium 4.6 mmol/L (3.5-5.1) 07/02/24 06:45
BUN 14 mg/dl (9-20) 07/02/24 06:45
Glucose 108 mg/dl (70-99) H 07/02/24 06:45
Calcium 9.3 mg/dl (8.4-10.2) 07/02/24 06:45
LDL Cholesterol, Calc 39 mg/dl 07/02/24 06:45
Medications
-
Active Medications
Generic Name Dose Route Start Last Admin
Trade Name Freq PRN Reason Stop Dose Admin
Acetaminophen 650 mg 07/01/24 18:18
Acetaminophen 325 Mg Tablet PO 07/29/24 18:17
Q4HPRN PRN
mild pain/AGULIAR/temp> 101F, mild pain
Amlodipine Besylate 10 mg 07/03/24 08:00
Amlodipine 10 Mg Tablet PO 07/31/24 07:59
DAILY LILLI
Aspirin 81 mg 07/02/24 08:00 07/02/24 08:28
Aspirin 81 Mg Chewable Tablet PO 07/30/24 07:59 81 mg
DAILY LILLI Administration
Atorvastatin Calcium 80 mg 07/01/24 18:18 07/01/24 20:58
Atorvastatin (Lipitor) 80 Mg Tablet PO 07/29/24 18:17 80 mg
QPM LILLI Administration
Benztropine Mesylate 0.5 mg 07/01/24 20:00 07/02/24 08:28
Benztropine 0.5 Mg Tablet PO 07/29/24 19:59 0.5 mg
BID LILLI Administration
Cholecalciferol 25 mcg 07/02/24 08:00 07/02/24 08:28
Cholecalciferol (Vitamin D3) 25 Mcg Tablet (1,000 Units) PO 07/30/24 07:59 25 mcg
DAILY LILLI Administration
Citalopram Hydrobromide 10 mg 07/02/24 08:00 07/02/24 08:28
Citalopram 10 Mg Tablet PO 07/30/24 07:59 10 mg
DAILY LILLI Administration
Citalopram Hydrobromide 20 mg 07/02/24 08:00 07/02/24 08:27
Citalopram 20 Mg Tablet PO 07/30/24 07:59 20 mg
DAILY LILLI Administration
Clopidogrel Bisulfate 75 mg 07/02/24 08:00 07/02/24 08:28
Clopidogrel 75 Mg Tablet PO 07/30/24 07:59 75 mg
DAILY LILLI Administration
Cyanocobalamin 1,000 mcg 07/02/24 08:00 07/02/24 08:29
Cyanocobalamin 1,000 Mcg Tablet PO 07/30/24 07:59 1,000 mcg
DAILY LILLI Administration
Dextrose 12.5 grams 07/01/24 18:18
Dextrose 50% (0.5 Grams/Ml) 50 Ml Syringe IV 07/29/24 18:17
[id number] PRN
hypoglycemia
Protocol
Docusate Sodium 100 mg 07/02/24 08:00 07/02/24 08:29
Docusate Sodium 100 Mg Capsule PO 07/30/24 07:59 100 mg
DAILY LILLI Administration
Ferrous Sulfate 325 mg 07/02/24 08:00 07/02/24 08:30
Ferrous Sulfate 325 Mg Tablet PO 07/30/24 07:59 325 mg
DAILY LILLI Administration
Folic Acid 1 mg 07/02/24 08:00 07/02/24 08:27
Folic Acid 1 Mg Tablet PO 07/30/24 07:59 1 mg
DAILY LILLI Administration
Glucagon 1 mg 07/01/24 18:18
Glucagon 1 Mg Vial IM 07/29/24 18:17
PRN PRN
hypoglycemia
Protocol
Haloperidol 6 mg 07/01/24 20:00 07/02/24 08:28
Haloperidol 2 Mg Tablet PO 07/29/24 19:59 6 mg
BID LILLI Administration
Insulin Aspart 0 units 07/02/24 07:30 07/02/24 12:14
Insulin Aspart Low Resistance 300 Units/3 Ml Pen.Injctr SC 07/30/24 07:29 Not Given
AC LILLI
Protocol
Levetiracetam 250 mg 07/01/24 20:00 07/02/24 08:28
Levetiracetam 250 Mg Regular Release Tablet PO 07/29/24 19:59 250 mg
BID LILLI Administration
Levetiracetam 500 mg 07/01/24 20:00 07/02/24 08:29
Levetiracetam 500 Mg Regular Release Tablet PO 07/29/24 19:59 500 mg
BID LILLI Administration
Loratadine 10 mg 07/02/24 08:00 07/02/24 08:31
Loratadine 10 Mg Tablet PO 07/30/24 07:59 10 mg
DAILY LILLI Administration
Magnesium Oxide 500 mg 07/01/24 22:00 07/02/24 08:29
Magnesium Oxide 500 Mg Tablet PO 07/29/24 21:59 500 mg
TID LILLI Administration
Melatonin 6 mg 07/01/24 22:00 07/01/24 21:03
Melatonin 3 Mg Tablet PO 07/29/24 21:59 6 mg
HS LILLI Administration
Metoprolol Tartrate 25 mg 07/01/24 20:00 07/02/24 08:27
Metoprolol 25 Mg Regular Release Tablet PO 07/29/24 19:59 25 mg
BID LILLI Administration
Mirtazapine 30 mg 07/01/24 22:00 07/01/24 21:03
Mirtazapine 30 Mg Tablet PO 07/29/24 21:59 30 mg
HS LILLI Administration
Pantoprazole Sodium 40 mg 07/01/24 20:00 07/02/24 08:27
Pantoprazole 40 Mg Delayed Release Tablet PO 07/29/24 19:59 40 mg
BID LILLI Administration
Sennosides 8.6 mg 07/01/24 22:00 07/01/24 21:03
Sennosides (Senokot) 8.6 Mg Tablet PO 07/29/24 21:59 8.6 mg
HS LILLI Administration
Sodium Chloride 2 gram 07/01/24 20:00 07/02/24 08:26
Sodium Chloride 1 Gram Tablet PO 07/29/24 19:59 2 gram
BID LILLI Administration
Sodium Chloride 0 flush 07/01/24 20:00
Sodium Chloride 0.9% (Flush) Syringe IV 07/29/24 19:59
PER PROTOCOL LILLI
Home Medications
�Medication �Instructions �Recorded
benztropine 0.5 mg tablet 0.5 mg PO BID Drug induced 04/18/21
dyskinesia
bisacodyl 10 mg rectal suppository 10 mg AR DAILYPRN PRN If MOM 04/18/21
(OneLAX Bisacodyl) ineffective
levetiracetam 750 mg tablet 750 mg PO BID Seizures 04/18/21
(Keppra)
loratadine 10 mg tablet 10 mg PO DAILY Allergies 04/18/21
metformin 500 mg tablet 500 mg PO BID@0800,1700 Diabetes 04/18/21
metoprolol tartrate 25 mg tablet 25 mg PO BID Blood pressure 04/18/21
mirtazapine 15 mg tablet 30 mg PO HS Sleep 04/18/21
atorvastatin 80 mg tablet 80 mg PO QPM High cholesterol 11/07/21
clopidogrel 75 mg tablet 75 mg PO DAILY Blood clot 11/07/21
prevention/tx
fluticasone propionate 50 2 spray intranasal DAILY Allergies 11/07/21
mcg/actuation nasal
spray,suspension
magnesium hydroxide 400 mg/5 mL 30 ml PO HSPRN PRN constipation, 11/07/21
oral suspension no BM in 3 days
sennosides 8.6 mg tablet (senna) 8.6 mg PO HS Constipation 11/07/21
acetaminophen 325 mg tablet 650 mg PO Q4HPRN PRN mild 11/13/21
pain/AGUILAR/temp> 101F, mild pain
cyanocobalamin (vitamin B-12) 1,000 mcg PO DAILY Supplement 11/13/21
1,000 mcg tablet
folic acid 1 mg tablet 1 mg PO DAILY Supplement 11/13/21
magnesium oxide 500 mg PO TID Supplement 11/13/21
pantoprazole 40 mg tablet,delayed 40 mg PO BID Gastrointestinal issue 11/13/21
release
aspirin 81 mg chewable tablet 81 mg PO DAILY 11/14/21
cholecalciferol (vitamin D3) 25 25 mcg PO DAILY Supplement 07/01/24
mcg (1,000 unit) tablet
citalopram 30 mg capsule 30 mg PO DAILY Mental 07/01/24
Health/Anxiety
dextromethorphan HBr 10 ml PO Q6HPRN PRN cough 07/01/24
docusate sodium 100 mg tablet 100 mg PO DAILY Constipation 07/01/24
ferrous sulfate 325 mg (65 mg 325 mg PO DAILY Supplement 07/01/24
iron) tablet
haloperidol 1 mg tablet 6 mg PO BID Mental Health/Anxiety 07/01/24
lorazepam 0.5 mg topical Q6HPRN PRN agitation 07/01/24
melatonin 3 mg tablet 6 mg PO HS Sleep 07/01/24
sodium chloride 1,000 mg soluble 2,000 mg PO BID Supplement 07/01/24
tablet
sodium phosphates 19 gram-7 118 ml AR DAILYPRN PRN if 07/01/24
gram/118 mL enema (Fleet Enema) suppository is ineffective
amlodipine 5 mg tablet 10 mg (2 x 5 mg) PO DAILY #60 tabs 07/02/24
--- NOTE | 2024-07-02 16:08 | CM ---
Addendum entered by Linda Stanford RN 07/02/24 16:26:
[facility]
report [phone] ext [phone]
fax [phone]
Original Note:
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 Pt is assisted in all activities of daily living.Pt with Schizophrenia on Haldol po BID. PT evaluated pt who said pt is close to baseline which in non ambulatory
with wc self propel.Randall requested pt transfer to [place]. MD ho pt . [facility] Dany[facility] M[facility]uley concerning pt case.PASSR sent to both places in care port.Spoke with Danyell Mccauley and Tristen explained they will communicate with Randall
to get him transferred to [place] in future but will need to return to [facility] today. Spoke with Randall and explained PASSR , Level 2, will need to be looked out
Pharmacy Concept
PCP DR Swanson
PLAN Return to [facility] Medical nec form completed .
--- NOTE | 2024-07-02 16:17 | PTCARENOTE ---
Report called to RN at [place]. Patient with ambulance picking tech scheduled for 1829 this evening.
[2024-07-02 16:22] LABS: Glucose - Point of Care 121 mg/dl (70-99)
--- NOTE | 2024-07-02 16:54 | PTCARENOTE ---
Patient's IV removed. Tele removed. Patient understands that his poultry picker time is 630pm.
[2024-07-02] MEDS: LIPITOR 80 MG PO (17:13)
== END 2024-07-02 19:27 | DRG 65 ==
LOC: 4 EAST ACU 17:32
PROVIDERS: Registered Nurse; ADMITTING PHYSICIAN Hospitalist; ATTENDING PHYSICIAN Student in an Organized Health Care Education/Training Program; CONSULT PHYSICIAN Psychiatry & Neurology Neurology; EMERGENCY PHYSICIAN Emergency Medicine; FAMILY PHYSICIAN Internal Medicine
DX: I63.81 Other cerebral infarction due to occlusion or stenosis of small artery (principal); E87.1 Hypo-osmolality and hyponatremia; I69.354 Hemiplegia and hemiparesis following cerebral infarction affecting left non-dominant side; D63.8 Anemia in other chronic diseases classified elsewhere; E11.22 Type 2 diabetes mellitus with diabetic chronic kidney disease; I12.9 Hypertensive chronic kidney disease with stage 1 through stage 4 chronic kidney disease, or unspecified chronic kidney disease; F20.9 Schizophrenia, unspecified; F31.9 Bipolar disorder, unspecified; G40.909 Epilepsy, unspecified, not intractable, without status epilepticus; N18.9 Chronic kidney disease, unspecified; I65.22 Occlusion and stenosis of left carotid artery; H53.8 Other visual disturbances; D17.79 Benign lipomatous neoplasm of other sites; K21.9 Gastro-esophageal reflux disease without esophagitis; E78.00 Pure hypercholesterolemia, unspecified; F17.210 Nicotine dependence, cigarettes, uncomplicated; I25.10 Atherosclerotic heart disease of native coronary artery without angina pectoris; Z95.1 Presence of aortocoronary bypass graft; K22.70 Barrett's esophagus without dysplasia; F41.9 Anxiety disorder, unspecified; Z79.02 Long term (current) use of antithrombotics/antiplatelets; Z79.82 Long term (current) use of aspirin; Z79.84 Long term (current) use of oral hypoglycemic drugs; Z79.899 Other long term (current) drug therapy; Z88.0 Allergy status to penicillin
CPT/HCPCS: 80048; 80061; 82962; 83036; 85025; 85027; 85576; 85610; 85730; 87070; 92523; 92610; 93005; 93880; 97162; 97166; 99285